=== PATIENT | female | born 1935 | race Caucasian/White ===

== ENCOUNTER 2024-02-19 08:37 | Day surgery (SDC) | payer MEDICARE ==
[~2024-02-19] VITALS: Ht 160 cm; Wt 59.0 kg
[2024-02-19] VITALS (9 sets, daily range): BP systolic 96–140; BP diastolic 48–79; PULSE 53–79; RESP 16–30; TEMP 97.7; O2SAT 94–98
[~2024-02-19 08:37] MED LIST: ceFAZolin 2gm in dextrose, iso 50 ML IV ONE
[2024-02-19] MEDS ORDERED: VANCOMYCIN 1GM 200ML H20 (PEG) 200 ML IV ONE (09:00)
[2024-02-19] MEDS ORDERED: cefazolin 2gm/D5W 100mL 100 ML IV ONE (09:00)
[2024-02-19] MEDS ORDERED: FLUT1BLS4 INH (09:21)
[2024-02-19] MEDS ORDERED: CHOL20004 PO (09:21)
[2024-02-19] MEDS ORDERED: FURO20TA4 PO (09:21)
[2024-02-19] MEDS ORDERED: APIX2.5T PO (09:21)
[2024-02-19] MEDS ORDERED: POTA-208 PO (09:21)
[2024-02-19] MEDS ORDERED: LEVO75TA7 PO (09:21)
[2024-02-19] MEDS ORDERED: CARV3.1244 PO (09:21)
[2024-02-19] MEDS ORDERED: ZOLP5TAB8 PO (09:21)
[2024-02-19] MEDS ORDERED: PEMB100V IV (09:21)
[2024-02-19] MEDS ORDERED: VALS40TA11 PO (09:21)
[2024-02-19] MEDS ORDERED: ALB0.5UD NEB (09:21)
[2024-02-19] MEDS ORDERED: ROSU40TA89 PO (09:21)
[2024-02-19 09:30] LABS: BASOPHILS % (AUTO) 0.8 % (0-1); EOSINOPHILS # (AUTO) 0.3 X10'3 (0-0.9); EOSINOPHILS % (AUTO) 4.7 % (0-6); HEMATOCRIT 33.4 % (35.0-45.0); HEMOGLOBIN 10.5 g/dl (12.0-16.0); LYMPHOCYTES # (AUTO) 1.3 X10'3 (1.1-4.8); LYMPHOCYTES % (AUTO) 22.7 % (21-51); MEAN CORPUSCULAR HEMOGLOBIN 28.7 PG (27.0-31.0); MEAN CORPUSCULAR HGB CONC 31.5 g/dL (33.0-36.5); MEAN PLATELET VOLUME 7.9 FL (7.4-10.4); MONOCYTES # (AUTO) 0.4 X10'3 (0-0.9); MONOCYTES % (AUTO) 7.2 % (2-12); NEUTROPHILS # (AUTO) 3.7 X10'3 (1.8-7.7); NEUTROPHILS % (AUTO) 64.6 % (42-75); PLATELET COUNT 208 X10'3 (140-440); RED BLOOD COUNT 3.67 X10'6 (4.20-5.60); RED CELL DISTRIBUTION WIDTH 19.1 % (11.5-14.5); WHITE BLOOD COUNT 5.7 X10'3 (4.5-11.0)
[2024-02-19 09:49] LABS: ALBUMIN 2.9 G/DL (3.4-5.0); ANION GAP 7 (8-16); BLOOD UREA NITROGEN 16 MG/DL (7-18); CALCIUM 9.4 MG/DL (8.5-10.1); CHLORIDE 108 MMOL/L (99-107); CREATININE 1.45 MG/DL (0.40-0.90); GLUCOSE 100 MG/DL (70-104); SODIUM 141 MMOL/L (135-145); TOTAL CARBON DIOXIDE 26.3 MMOL/L (24-32); eCRCL 23 ML/MIN; eGFR 34 ML/MIN
[2024-02-19 09:50] LABS: INR 1.1 INR; PROTHROMBIN TIME 11.7 SECONDS (9.0-12.0)
[2024-02-19] MEDS: vancomycin/NS 1 GM ADD-VANTAGE 250 ML X 1 DOSE IV ONE (09:55)
[2024-02-19 10:05] LABS: PLATELET ESTIMATE NORMAL
[2024-02-19 10:06] LABS: ACANTHOCYTES FEW; ANISOCYTOSIS 2+; ELLIPTOCYTES 1+; TEAR DROP CELLS FEW
[2024-02-19] MEDS ORDERED: vancomycin 1,000mg inj ONE (11:01)
[2024-02-19] MEDS ORDERED: midazolam 1 mg/ML 2ml injection ONE ×2 (11:01→14:10)
[2024-02-19] MEDS ORDERED: LIDOcaine 1% W/epiNEPHrine 1:100,000 20ml vial ONE (11:01)
[2024-02-19] MEDS ORDERED: iohexol 350 MG/ML 50ML vial IV ONE (11:01)
[2024-02-19] MEDS ORDERED: fentaNYL/PF 50MCG/1 ML 2ML syringe ONE ×2 (11:01→14:10)
[2024-02-19] MEDS ORDERED: ceFAZolin 1000mg inj ONE (12:23)
[2024-02-19] MEDS ORDERED: AMIO200T27 PO (16:24)
[2024-02-19] MEDS: ketorolac trometh 15mg/ml vial 15 MG/ML ML IV ONE (16:50)
== END 2024-02-19 17:20 | disposition home or self-care (01) ==
LOC: SSTAY O 08:37
PROVIDERS: ATTEND Internal Medicine Cardiovascular Disease
DX: I25.5 Ischemic cardiomyopathy (principal); I47.20 Ventricular tachycardia, unspecified; I11.0 Hypertensive heart disease with heart failure; I50.22 Chronic systolic (congestive) heart failure; I25.118 Atherosclerotic heart disease of native coronary artery with other forms of angina pectoris; E78.5 Hyperlipidemia, unspecified; K21.9 Gastro-esophageal reflux disease without esophagitis; I48.19 Other persistent atrial fibrillation; J44.9 Chronic obstructive pulmonary disease, unspecified; E03.9 Hypothyroidism, unspecified; Z85.118 Personal history of other malignant neoplasm of bronchus and lung; Z79.01 Long term (current) use of anticoagulants; Z79.891 Long term (current) use of opiate analgesic; Z79.899 Other long term (current) drug therapy; Z90.49 Acquired absence of other specified parts of digestive tract; Z90.710 Acquired absence of both cervix and uterus; Z95.1 Presence of aortocoronary bypass graft; Z96.643 Presence of artificial hip joint, bilateral; Z98.818 Other dental procedure status; Z98.890 Other specified postprocedural states; Z88.8 Allergy status to other drugs, medicaments and biological substances
CPT/HCPCS: 33225; 33249; 36415; 71045; 80048; 83735; 85025; 85610; 93005; 99152; 99153; A4565; C1882; J0690; J1885; J2250; J3010; J3370; J3490; J7030; Q9967; 85008; 93641; C1895; C1900

== ENCOUNTER 2024-08-25 12:18 | Emergency (ER) | payer MEDICARE ==
[~2024-08-25] VITALS: Ht 160 cm; Wt 54.5 kg
[~2024-08-25 12:18] MED LIST changes: +ALB0.5UD NEB; +AMIO200T27 PO; +APIX2.5T PO; +CARV3.1244 PO; +CHOL20004 PO; +FLUT1BLS4 INH; +FURO20TA4 PO; +LEVO75TA7 PO; +PEMB100V IV; +POTA-208 PO; +ROSU40TA89 PO; +VALS40TA11 PO; +ZOLP5TAB8 PO; -ceFAZolin 2gm in dextrose, iso 50 ML IV ONE
[2024-08-25 12:21] VITALS: TEMP 100.4
[2024-08-25 13:21] LABS: BILIRUBIN,URINE NEGATIVE (Neg); CLARITY,URINE SLIGHTLY CLOUDY (Clear); COLOR,URINE YELLOW (Yellow); GLUCOSE, URINE NEGATIVE (Neg); KETONES,URINE NEGATIVE (Neg); LEUKOCYTE ESTERASE ,URINE NEGATIVE (Neg); OCCULT BLOOD,URINE TRACE-INTACT (Neg); PH,URINE 6.5 (4.8-8.0); PROTEIN,URINE 100 mg/dl (Neg)
[2024-08-25 13:29] LABS: NITRITES, URINE NEGATIVE (Neg); UA COLLECTION TYPE VOIDED
[2024-08-25 13:37] LABS: BACTERIA,URINE 2+ /HPF (Neg); MUCUS STRANDS FEW /LPF (Neg); RENAL CELLS, URINE FEW /HPF; SQUAMOUS EPITHELIAL CELL,UR MANY /LPF (FEW); TRANSITIONAL EPI CELLS,URINE MODERATE /HPF; WBC,URINE 0-4 /HPF (0-4)
[2024-08-25 13:38] LABS: FINE GRANULAR CAST 0-3 /LPF (NEGATIVE)
--- NOTE | 2024-08-25 14:20 | Physician Documentation ---
History of Present Illness ~ Chief Complaint: Flank Pain Stated Complaint: BACK PAIN Time Seen by MD: 14:19 Mode of Arrival: Ambulatory HPI This is an 89-year-old female with a history of kidney stones, most recently in February. Just completed tx for lung cancer. 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 She has been having right flank pain for the last 24 hours that comes and goes. However, she does not feel that it is as severe as when she has a kidney stone in February. She denies chills or fever, but has had some nausea without vomiting. Medication Reconciliation Allergies: Coded Allergies: No Known Allergies (Unverified , 08/25/24) Scheduled Albuterol Sulfate Nebs* (Proventil Nebs*), 1 VIAL NEB Q6H, (Reported) Amiodarone HCl (Amiodarone HCl), 1 TAB PO DAILY Apixaban (Eliquis), 1 TAB PO BID, (Reported) Carvedilol (Carvedilol), 1 TAB PO BID, (Reported) Cholecalciferol (Vitamin D), 1 TAB PO DAILY, (Reported) Fluticasone/Umeclidin/Vilanter (Trelegy Ellipta 100-62.5-25), 1 PUFFS INH DAILY, (Reported) Furosemide (Furosemide), 1 TAB PO DAILY, (Reported) Levothyroxine Sodium (Levothyroxine Sodium), 100 MG PO DAILY, (Reported) Pembrolizumab (Keytruda), 25 MG IV Q3W, (Reported) Potassium Chloride (Potassium Chloride), 1 TAB PO BID, (Reported) Rosuvastatin Calcium (Rosuvastatin Calcium), 20 MG PO DAILY, (Reported) Valsartan (Valsartan), 1 TAB PO DAILY, (Reported) Scheduled PRN Hydrocodone Bit/Acetaminophen 5/325 MG (Mcdaniel 5/325 MG), 1 TAB PO Q12H PRN PRN for pain Ondansetron 8mg ODT (Ondansetron Odt), 1 TAB PO TID PRN for nausea/vomiting Zolpidem Tartrate (Zolpidem Tartrate), 1 TAB PO HS PRN for sleep, (Reported) Review of Systems ROS As stated above in the HPI, otherwise all systems are reviewed and negative. Physical Exam Vital Signs: Temperature: 100.4, Source: Oral, Heart Rate: 71, Respiratory Rate: 14, BP: 94/39, Pulse Oximetry: 97, Weight: 54.550 Physical Exam General: Alert, no apparent distress. HEENT: PERRL, EOMI, no injection, moist mucous membranes. Neck: Full range of motion. Respiratory: Lungs clear, no respiratory distress. Chest: No accessory muscle use. Cardiovascular: Regular rate and rhythm, no murmurs. Gastrointestinal: Soft, TTP under right ribs, nondistended. Bowels sounds prese nt. Extremities: Normal range of motion, no deformity. Neurologic: Oriented x4. Psychiatric: Normal mood and affect. Skin: Slightly jaundiced but warm and dry. No edema, no ecchymosis. Progress Progress Note 1703: [employer] reports that liver mass has the appearance of a cyst but will send to radiologist for official read. Results/Orders Results/Orders Orders - ABHIJEET MCKEON [employer] * Iv Access / Saline Lock * (08/25/24 14:25) Normal Saline 1000ml (Sodium Chloride 10 (08/25/24 14:25) Ct Abdomen Pelvis (08/25/24 15:18) Ultrasound Of Abdomen (08/25/24 16:47) Completed Orders - ABHIJEET MCKEON [employer] Morphine 4mg/Ml Inj. (Morphine Inj.) (08/25/24 14:25) Ondansetron Inj. (Zofran 4mg/2ml Vial) (08/25/24 14:25) Cbc/Diff (08/25/24 14:42) Lipase (08/25/24 14:42) CMP (08/25/24 14:42) Ct Abdomen Pelvis (08/25/24 15:18) Ultrasound Of Abdomen (08/25/24 16:47) Medications Received in ER Medications (Trade) Dose Ordered Sig/Baudilio Route PRN Reason Start Time Stop Time Status Last Admin Dose Admin Sodium Chloride 1,000 ml @ 250 mls/hr ONCE ONCE IV 08/25/24 14:25 08/25/24 18:24 08/25/24 14:47 250 MLS/HR (morphine inj.) 4 mg ONCE ONCE IV 08/25/24 14:25 08/25/24 14:26 DC 08/25/24 14:47 4 MG (Zofran 4mg/2ml vial) 4 mg ONCE ONCE IV 08/25/24 14:25 08/25/24 14:26 DC 08/25/24 14:47 4 MG Vital Signs 08/25/24 08/25/24 08/25/24 08/25/24 12:21 14:05 14:47 15:33 Temp 100.4 Pulse 74 71 Resp 14 14 16 14 B/P (MAP) 102/52 94/39 (57) Pulse Ox 97 97 08/25/24 16:00 Pulse 74 Resp 14 B/P (MAP) 104/55 (71) Pulse Ox 97 Laboratory Tests Test 08/25/24 12:30 08/25/24 14:54 Urine Specimen Description Voided Urine Color Yellow Urine Clarity Slightly cloudy Urine pH 6.5 Urine Specific [place] 1.010 Urine Protein 100 H Urine Glucose (UA) Negative Urine Ketones Negative Urine Occult Blood Trace-intact Urine Nitrite Negative Urine Bilirubin Negative Urine Urobilinogen 2.0 H Urine Leukocyte Esterase Negative Urine RBC 3-10 Urine WBC 0-4 Urine Squamous Epithelial Cells Many Urine Transitional Epithelial Cells Moderate Urine Renal Cells Few Urine Bacteria 2+ Urine Fine Granular Casts 0-3 Urine Mucus Few Urine Culture Indicated Not ind Volume Urine Centrifuged 8 ml Urine Comment Low volume White Blood Count 13.3 H Red Blood Count 3.51 L Hemoglobin 9.2 L Hematocrit 28.9 L Mean Corpuscular Volume 82.2 Mean Corpuscular Hemoglobin 26.2 L Mean Corpuscular Hemoglobin Concent 31.8 L Red Cell Distribution Width 18.6 H Platelet Count 131 L Mean Platelet Volume 8.1 Neutrophils (%) (Auto) 89.2 H Lymphocytes (%) (Auto) 4.6 L Monocytes (%) (Auto) 5.9 Eosinophils (%) (Auto) 0 Basophils (%) (Auto) 0.3 Neutrophils # (Auto) 11.9 H Lymphocytes # (Auto) 0.6 L Monocytes # (Auto) 0.8 Eosinophils # (Auto) 0.0 Basophils # (Auto) 0.0 CBC Comment Platelet Estimate Decreased Red Blood Cell Morphology Perf Basophilic Stippling Anisocytosis 2+ Target Cells Few [place] Cells Few Elliptocytes 1+ Sodium Level 138 Potassium Level 3.9 Chloride Level 103 Carbon Dioxide Level 25.3 Anion Gap 10 Blood Urea Nitrogen 18 Creatinine 1.71 H Estimated GFR/1.73 m2 28 BUN/Creatinine Ratio 10.5 Glucose Level 91 Calcium Level 8.8 Total Bilirubin 1.3 H Aspartate Amino Transf (AST/SGOT) 16 Alanine Aminotransferase (ALT/SGPT) 18 Alkaline Phosphatase 70 Total Protein 5.9 L Albumin 2.8 L Globulin 3.1 Albumin/Globulin Ratio 0.9 L Lipase 17 Chemistry Comments Medical Decision Making Additional Comment This is an 89-year-old female with a history of kidney stones and recent dominik atment for lung cancer who presented to the emergency department due to intermittent right flank pain that radiated into the right abdomen. She had a CT scan which showed a liver mass. Subsequent ultrasound showed probable cyst. Patient does have upcoming follow up with both her oncologist and primary care. She will be sent with pain medication, nausea medication, and instructions to return if worse particularly if having a fever over 101 or intractable pain. Labs showed evidence of anemia, and patient is unsure if this is a new or chronic issue. She should discuss this with her PCP as well. Departure Time of Disposition: 17:08 Disposition: 01 HOME / SELF CARE / HOMELESS Impression: Primary Impression: Flank pain Condition: Stable Discharge Instructions: Flank Pain, Adult Additional Instructions: You are being provided with a copy of your CT scan. Please follow up with the primary care provider within the next week. Please return if worse such as with a fever over 101 or other concerns that you are getting worse. Rest. Hydrate. Use the pain medication and nausea medication as needed. Referrals: NO PRIMARY CARE PROVIDER (PCP) Prescriptions Ondansetron 8mg ODT (Ondansetron Odt) 8 Mg Tab.rapdis 1 TAB PO TID PRN for nausea/vomiting, #10 TAB Prov: ABHIJEET MCKEON NP 08/25/24 Hydrocodone Bit/Acetaminophen 5/325 MG (Mcdaniel 5/325 MG) 5 Mg/325 Mg Tablet 1 TAB PO Q12H PRN PRN for pain for 5 Days, #10 TAB Prov: ABHIJEET MCKEON NP 08/25/24 Education Educated: Patient, Family Educated regarding: diagnosis, treatment, prognosis, need for follow up Signature Scribe Signature: No scribe Attestation: The note accurately reflects work and decisions made by me.Abhijeet Vale NP 08/25/24 14:27 ABHIJEET MCKEON NP August 25, 2024 14:20
[2024-08-25] MEDS: normal saline 1000ml 1,000 ML IV ONE (14:47)
[2024-08-25] MEDS: morphine 4 MG/ML inj SYRINge IV ONE (14:47)
[2024-08-25] MEDS: ondansetron/PF 4mg/2ml inj IV ONE (14:47)
[2024-08-25 15:08] LABS: BASOPHILS % (AUTO) 0.3 % (0-1); EOSINOPHILS % (AUTO) 0 % (0-6); HEMATOCRIT 28.9 % (35.0-45.0); HEMOGLOBIN 9.2 g/dl (12.0-16.0); LYMPHOCYTES # (AUTO) 0.6 X10'3 (1.1-4.8); LYMPHOCYTES % (AUTO) 4.6 % (21-51); MEAN CORPUSCULAR HEMOGLOBIN 26.2 PG (27.0-31.0); MEAN CORPUSCULAR HGB CONC 31.8 g/dL (33.0-36.5); MEAN CORPUSCULAR VOLUME 82.2 FL (78-98); MEAN PLATELET VOLUME 8.1 FL (7.4-10.4); MONOCYTES # (AUTO) 0.8 X10'3 (0-0.9); MONOCYTES % (AUTO) 5.9 % (2-12); NEUTROPHILS # (AUTO) 11.9 X10'3 (1.8-7.7); NEUTROPHILS % (AUTO) 89.2 % (42-75); PLATELET COUNT 131 X10'3 (140-440); RED BLOOD COUNT 3.51 X10'6 (4.20-5.60); RED CELL DISTRIBUTION WIDTH 18.6 % (11.5-14.5); WHITE BLOOD COUNT 13.3 X10'3 (4.5-11.0)
[2024-08-25 15:26] LABS: ALANINE AMINOTRANSFERASE 18 U/L (12-78); ALBUMIN 2.8 G/DL (3.4-5.0); ALBUMIN/GLOBULIN RATIO 0.9 (1.1-1.5); ALKALINE PHOSPHATASE 70 IU/L (46-116); ANION GAP 10 (8-16); ASPARTATE AMINO TRANSFERASE 16 U/L (10-37); BILIRUBIN,TOTAL 1.3 MG/DL (0.1-1.0); BLOOD UREA NITROGEN 18 MG/DL (7-18); BUN/CREATININE RATIO 10.5 (10.0-20.0); CALCIUM 8.8 MG/DL (8.5-10.1); CHLORIDE 103 MMOL/L (99-107); CREATININE 1.71 MG/DL (0.40-0.90); GLUCOSE 91 MG/DL (70-104); LIPASE 17 U/L (16-77); POTASSIUM 3.9 MMOL/L (3.5-5.1); SODIUM 138 MMOL/L (135-145); TOTAL CARBON DIOXIDE 25.3 MMOL/L (24-32); TOTAL PROTEIN 5.9 G/DL (6.4-8.2); eCRCL 19 ML/MIN; eGFR 28 ML/MIN
[2024-08-25 15:45] LABS: PLATELET ESTIMATE DECREASED
[2024-08-25 15:46] LABS: ANISOCYTOSIS 2+; BURR CELLS FEW; ELLIPTOCYTES 1+; TARGET CELLS FEW
--- NOTE | 2024-08-25 16:41 | RADIOLOGY REPORT ---
Exam: CT CT ABDOMEN PELVIS History: back pain, hx aneurysm Comparison Study: None TECHNIQUE: Multidetector CT of the abdomen was performed from lung bases to pubic symphysis. Imaging was performed without IV contrast. Axial, coronal and sagittal multiplanar reformats were obtained fr om the axial data set by the technologist. Radiation Dose Information: CT Dose: CTDI volume is 12.44 mGy. Dose-length product is 613.65 mGy*cm FINDINGS: Evaluation of solid organs is limited due to lack of intravenous contrast use. Findings: Lung Bases: No acute or significant lung base finding. Normal heart size. No pleural or pericardial effusion. Liver: The liver is normal in size. No focal lesions. Gallbladder and Biliary Tree: Gallbladder has been surgically removed. Spleen: Unremarkable Pancreas: The pancreas is grossly normal in appearance. Adrenal Glands: Unremarkable Kidneys: Kidneys are grossly normal without calculi or hydronephrosis. Bladder: Grossly unremarkable for degree of distention. Bowel: The stomach is grossly normal in appearance. Small bowel and colon are normal in caliber and d istribution. The appendix is not visualized; however, no secondary findings of acute appendicitis id entified. Ascites: Absent Lymphadenopathy: No mesenteric, retroperitoneal or periportal lymphadenopathy. Abdominal Wall and Mesentery: Unremarkable. Vasculature: The visualized abdominal aorta is normal in size and caliber. Evaluation of abdominal a nd pelvic vessels is limited due to lack of intravenous contrast. Pelvic Organs: Unremarkable Musculoskeletal: No aggressive focal bony lesions, acute fractures or dislocation. Bilateral hip pros theses. Mild compression of L1. Soft tissues: Unremarkable IMPRESSION: 1. Gallbladder has been surgically removed. 2. 3 cm hypodense mass noted centrally in the liver with tissue density 34 Hounsfield units. Consider ultrasound for further evaluation. 3. 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 4. Mild compression of L1 HS:Y Radiation optimization: All CT scans at this facility use at least one of these dose optimization quinton hniques: automated exposure control mA and/or kV adjustment per patient size (includes targeted exam s where dose is matched to clinical indication) or iterative reconstruction.
[2024-08-25] MEDS ORDERED: ONDA-245 PO (17:09)
[2024-08-25] MEDS ORDERED: HYDR-3965 PO (17:09)
--- NOTE | 2024-08-25 17:24 | RADIOLOGY REPORT ---
INDICATION: liver mass, pain TECHNIQUE: Ultrasound abdomen. Multiple real-time sonographic images of the abdomen were obtained. COMPARISON: None FINDINGS: The liver is homogenous in echogenicity. The liver measures 16.67 cm. There is an anechoic lesion in the right lobe of the liver measuring 3.75 x 2.97 x 3.84 cm consistent with a hepatic cyst . No intrahepatic biliary ductal dilatation is noted. Gallbladder is been surgically removed. The common duct not visualized The right kidney measures 10.07 cm. No hydronephrosis. The pancreas is not well visualized due to obscuration from bowel gas. IMPRESSION: 1. 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 2. Cholecystectomy noted. 3. Limited pancreas visualization. 4. Otherwise unremarkable. Liver measures 16.7 cm in length. HS:Y
[2024-08-25 17:32] VITALS: BP 100/50; PULSE 78; RESP 16; O2SAT 97
== END 2024-08-25 17:44 | disposition home or self-care (01) ==
LOC: ER 12:19
DX: R10.9 Unspecified abdominal pain (principal); C34.90 Malignant neoplasm of unspecified part of unspecified bronchus or lung
CPT/HCPCS: 36415; 74176; 76700; 80053; 81001; 83690; 85025; 96361; 96374; 96375; 99285; J2270; J2405; J7030; 85008